=== PATIENT | male | born 1955 | race Caucasian/White ===

== ENCOUNTER 2016-08-06 23:39 | Emergency (ER) | payer OTHER ==
[~2016-08-06] VITALS: Ht 185.4 cm; Wt 95.3 kg
--- NOTE | 2016-08-07 00:03 | ED DYSPNEA/ASTHMA COMPLAINT ---
History of Present Illness General Chief Complaint: Dyspnea (COPD, CHF, Other) Stated Complaint: WHEEZING, SOB, URI O2 93% AT [employer] Source: patient Exam Limitations: no limitations Vital Signs & Intake/Output Vital Signs & Intake/Output Vital Signs Date Time Temp Pulse Resp B/P Pulse O2 O2 Flow FiO2 Ox Delivery Rate 08/07 0001 95 Nasal 4.0L Cannula 08/06 2358 96 Nasal 4.0L Cannula 08/06 2349 99.1 103 24 152/78 92 Room Air ED Intake and Output 08/07 0000 08/06 1200 Intake Total 0 Output Total Balance 0 Intake, Oral 0 Patient 210 lb Weight Allergies Coded Allergies: prochlorperazine (Severe, ANAPHYLAXIS 08/07/16) Reconcile Medications Albuterol Sulfate (Proair Hfa) 90 MCG HFA.AER.AD 2-4 INH INH Q6P PRN ASTHMA Prednisone (Deltasone) 20 MG TABLET 2 TAB PO DAILY ASTHMA Triage Note: PT TO ED C/O WHEEZING, SOB, CHILLS, FEVERS, COUGH AND POST NASAL DRIP. COLD S/S STARTED APPROX A WEEK AGO, MUCH WORSE SINCE LAST NIGHT. O2 SAT 92% ON RA. WHEEZING ON AUSCULTAION, WORSE ON LEFT. PLACED ON NC 4L/MIN, O2 SAT TO 96%. RT PAGED FOR [place] [facility] Triage Nurses Notes Reviewed? yes HPI: Patient presents for evaluation of worsening dyspnea. He has been suffering fever or cough and cold symptoms with postnasal drip over the past week or so. Symptoms became severe tonight prompting him to come to the emergency department. His dyspnea worsens with exertion and nothing seems to make it feel better. Past History Travel History Traveled to [place] past 21 day No Medical History Any Pertinent Medical History? see below for history Neurological: NONE EENT: NONE Cardiovascular: NONE Respiratory: NONE Gastrointestinal: NONE Hepatic: NONE Renal: NONE Musculoskeletal: NONE Psychiatric: NONE Endocrine: NONE Surgical History Surgical History: non-contributory Psychosocial History What is your primary language Martiniquais Tobacco Use: Never used Family History Hx Contributory? No Review of Systems Review of Systems Constitutional: Reports: no symptoms. EENTM: Reports: see HPI. Respiratory: Reports: see HPI. Cardiovascular: Reports: no symptoms. GI: Reports: no symptoms. Genitourinary: Reports: no symptoms. Musculoskeletal: Reports: no symptoms. Skin: Reports: no symptoms. Neurological/Psychological: Reports: no symptoms. Hematologic/Endocrine: Reports: no symptoms. Immunologic/Allergic: Reports: no symptoms. All Other Systems: Reviewed and Negative Physical Exam Physical Exam Respiratory: SEE BELOW Comments: Gen.: Well-nourished, well-developed, no acute respiratory distress. Moderate respiratory distress. Head: Normocephalic, atraumatic. Eyes: Normal inspection bilaterally Ears: Normal inspection bilaterally Nose: Normal inspection Throat/mouth : Moist mucosa Neck: Supple, full range of motion, no goiter Heart: Regular rate and rhythm, no murmurs rubs or gallops Lungs: Diffuse end expiratory wheezing with fair air entry Chest: Nontender Back: Normal range of motion Abdomen: Soft, nontender, nondistended, normal bowel sounds Extremities: Normal range of motion grossly, equal radial pulses, no cyanosis clubbing or edema, calves nontender Neurologic: Cranial nerves grossly intact, speech is clear Skin: warm and dry Psychiatric: Calm, cooperative, no apparent delusions or hallucinations Core Measures ACS in differential dx? No Severe Sepsis Present: No Septic Shock Present: No Progress Differential Diagnosis: pneumonia, ASTHMATIC BRONCHITIS Plan of Care: Current Medications Sig/Pan Start time Last Medication Dose Stop Time Status Admin Albuterol Sulfate 3 ML ONCE ONE 08/07 44 UNVr (Proventil) 08/07 45 Initial ED EKG: none Comments: 08/07/2016 12:37:29 AM patient states he feels better and his air entry has improved although he still has diffuse end expiratory wheezing and a prolonged expiratory phase. I will order a second albuterol treatment. 08/07/2016 1:08:38 AM Mark appears quite comfortable at this point in states he is ready to go home. Lungs reveal improving bronchospasm. Departure Departure Disposition: HOME OR SELF CARE Condition: Stable Clinical Impression Primary Impression: Asthmatic bronchitis with acute exacerbation Referrals: ANALI PRICE,ARNOLD Grant (PCP/Family) Additional Instructions: Albuterol and prednisone as prescribed. Follow-up with your primary care doctor within 48 hours for reevaluation. Return if any concerns or sudden worsening. Thank you for choosing the [facility] Emergency Department for your care. It was a pleasure to serve you today. Robert Murillo M.D. [facility] Departure Forms: Customer Survey General Discharge Information Prescriptions: Current Visit Scripts Albuterol Sulfate (Proair Hfa) 2-4 INH INH Q6P PRN ASTHMA #1 INHAL Prednisone (Deltasone) 2 TAB PO DAILY #10 TAB Critical Care Note Critical Care Note Critical Care Time: 30-74 min
[2016-08-07] MEDS ORDERED: PROAIR HFA8.5 GM INH (00:57)
[2016-08-07] MEDS ORDERED: DELTASONE20 MG PO (00:57)
[2016-08-07 01:13] VITALS: BP 112/65
== END 2016-08-07 01:23 ==
LOC: ERH 23:39
DX: J45.901 Unspecified asthma with (acute) exacerbation (principal)
CPT/HCPCS: 1263